=== PATIENT | female | born 1960 | race Caucasian/White ===

== ENCOUNTER 2023-05-01 08:56 | Emergency (ER) | payer OTHER | END 2023-05-01 09:55 | disposition home or self-care (01) | LOC: LL.ED 08:56 | DX: S50.12XA Contusion of left forearm, initial encounter (principal); Z87.891 Personal history of nicotine dependence; V18.9XXA Unspecified pedal cyclist injured in noncollision transport accident in traffic accident, initial encounter; Y93.55 Activity, bike riding | CPT/HCPCS: 73070-LT; 73090-LT; 73100-LT; 99283 ==